=== PATIENT | female | born 1990 | race Caucasian/White ===

== ENCOUNTER 2024-05-06 08:09 | Emergency (ER) | payer OTHER, SELFPAY ==
[2024-05-06 08:36] VITALS: BP 136/90; PULSE 94; RESP 16; TEMP 36.6; O2SAT 100
--- NOTE | 2024-05-06 08:50 | ED_ITS ---
HPI - URI/Sore Throat General Chief Complaint: Upper Respiratory Infection Stated Complaint: cough for 2 weeks Time Seen by Provider: 05/06/24 08:55 Source: patient Mode of arrival: ambulatory Limitations: no limitations History of Present Illness HPI Narrative: 33 y/o female presented for c/o cough for over 2 weeks. Also reports some nasal congestion and drainage. Denies sob, wheezing, n/v/d. Had low fever at onset. Taking Dayquil. Children had similar symptoms. Related Data Home Medications ?Medication ?Instructions ?Recorded ?Confirmed ?Last Taken ?Type atomoxetine 40 mg capsule mg PO 05/06/24 Unknown History dextroamphetamine-amphetamine 5 mg 05/06/24 Unknown History tablet lamotrigine 100 mg tablet mg 05/06/24 Unknown History lamotrigine 150 mg tablet mg 05/06/24 Unknown History lisdexamfetamine 70 mg capsule mg 05/06/24 Unknown History (Vyvanse) sertraline 100 mg tablet mg 05/06/24 Unknown History trazodone 150 mg tablet mg 05/06/24 Unknown History Allergies Allergy/AdvReac Type Severity Reaction Status Date / Time erythromycin base (From Allergy Severe Anaphylaxis Verified 05/06/24 08:58 E-Mycin) Review of Systems Review of Systems: CONSTITUTIONAL: Denies body aches, fever, chills, or sweats. EYES: Denies visual changes, redness, or discharge. ENT: reports rhinorrhea, congestion, Denies sore throat, or otalgia. CARDIOVASCULAR: Denies chest pain, palpitations, or edema. RESPIRATORY: Reports cough, denies sob, wheezing. GASTROINTESTINAL: Denies abdominal pain, nausea, vomiting, or diarrhea. MUSCULOSKELETAL: Denies back pain, joint pain, or myalgia. NEUROLOGIC: Denies headache, numbness, tingling, or weakness. All systems reviewed & are unremarkable except as noted in HPI and below PMFSH Past Medical History Medical History (Updated 05/06/24 @ 09:05 by Smitha Hdz APRN) Septic shock Family History Family History (System 01/26/24 @ 10:24 by Beau Covington) Father Patient's father is in good health Sibling Patient's sister is in good health Patient's brother is in good health Father Family history of bipolar disorder Hypertension Family history of elevated blood lipids Family history of arthritis Family history of diabetes mellitus in first degree relative Mother Hypertension Family history of elevated blood lipids Family history of diabetes mellitus in first degree relative Family history of neuropathy Other Cerebrovascular accident Family history of cardiovascular disease Social History Social History (System 01/26/24 @ 10:24 by Beau Covington) Smoking status: Never smoker Alcohol intake: never Comments At time of signature, I have reviewed and agree with nursing past medical, surgical, social and family history unless otherwise noted. Please see nursing chart for further information. There is no relevant family history pertinent to the presenting complaint Exam Narrative: GENERAL: Well-appearing, in no acute distress. EYES: EOMI. No redness or drainage. Conjunctivae normal. ENT: Mucous membranes pink and moist. No rhinorrhea. TMs normal bilaterally. Throat normal. Uvula midline. NECK: Normal AROM. Supple. CHEST: No respiratory distress. Lungs clear and diminished to all dugan. Occasional sterile process coordinator cough. Speaks full sentences HEART: Regular rate and rhythm. No murmur appreciated. ABDOMEN: Soft, nontender, nondistended, normal active bowel sounds. SKIN: Warm, dry, no rash. Capillary refill normal. Normal skin turgor. NEURO: Alert and oriented x3. Gait steady. PSYCH: Normal affect. Course Course Emergency Course: Patient is aware of diagnosis, understands and agrees to treatment plan. Anticipatory guidance given. Patient agrees to follow-up as directed and is aware of reasons to seek care at the emergency department. Portions of this record may have been created with voice recognition software Level of Care: Express Care Visit Vital Signs Vital signs: Vital Signs Temperature 97.9 F 05/06/24 08:36 Pulse Rate 94 05/06/24 08:36 Respiratory Rate 16 05/06/24 08:36 Blood Pressure 136/90 05/06/24 08:36 Pulse Oximetry 100 05/06/24 08:36 Temperature 97.9 F 05/06/24 08:36 Pulse Rate 94 05/06/24 08:36 Respiratory Rate 16 05/06/24 08:36 Blood Pressure 136/90 05/06/24 08:36 Pulse Oximetry 100 05/06/24 08:36 MDM - URI/Sore Throat MDM Narrative Medical decision making narrative: Discussed physical exam findings and reviewed Rx's. VSS. Advised supportive measures and signs/symptoms to go to the ER. Pt is appropriate for outpt treatm ent and f/u. Reports history of 'Coding twice from septic shock' and allergy to all mycin's. Differential Diagnosis Differential diagnosis: Likely upper respiratory infection, otitis media, sinusitis, viral infection, bronchitis, pharyngitis and other (pneumonia) Discharge Plan Discharge Clinical Impression: Bronchitis Patient Disposition: Home, Self-Care Condition: Stable Instructions: Antibiotic Form, Acute Bronchitis (ED) Additional Instructions: Acute bronchitis can be contagious because it is usually caused by infection with a virus or bacteria. It is usually for a few days but you can be contagious for up to one week. Avoid crowds until you do not have a fever and symptoms are improved Take medication as directed Recommend Flonase spray and Zyrtec (or Claritin/Anali) if you have nasal congestion over the counter Cough syrup may cause drowsiness; avoid driving or take it at night time. Tylenol 1000mg every 8 hours as needed for pain Symptomatic treatment includes: rest, fluids, and increase humidity of the air at home. Follow up with your primary care provider as needed in 1 week Go to the ER for worsening symptoms or concerns Patient Language: Slovak Prescriptions: New benzonatate 200 mg capsule 200 mg PO TID PRN (Reason: cough) Qty: 20 0RF methylprednisolone [Medrol (Mateo)] 4 mg tablets,dose pack See Rx Instructions .ROUTE .COMPLEX Qty: 21 0RF Rx Instructions: orally per package directions doxycycline hyclate 100 mg tablet 100 mg PO BID 7 Days Qty: 14 0RF No Action lamotrigine 150 mg tablet sertraline 100 mg tablet trazodone 150 mg tablet lamotrigine 100 mg tablet dextroamphetamine-amphetamine 5 mg tablet atomoxetine 40 mg capsule PO lisdexamfetamine [Vyvanse] 70 mg capsule Follow-up/Referrals: Amber Fletcher, EMANI [Primary Care Provider] - Time of Disposition: 09:02
== END 2024-05-06 09:04 | disposition home or self-care (01) ==
PROVIDERS: Emergency Provider Nurse Practitioner Family; PCP Physician Assistant
DX: J40 Bronchitis, not specified as acute or chronic (principal)
CPT/HCPCS: 99213; G0463